=== PATIENT | female | born 1970 | race Caucasian/White ===

== ENCOUNTER 2022-06-04 20:58 | Emergency (ER) | payer OTHER ==
[~2022-06-04] VITALS: Ht 152.4 cm; Wt 68.0 kg
[2022-06-04 21:42] VITALS: BP 143/80
[2022-06-05] MEDS ORDERED: BENZ200C52 MT (01:03)
== END 2022-06-05 01:00 | disposition home or self-care (01) ==
LOC: ER 20:58
DX: R05.9 Cough, unspecified (principal); Z90.710 Acquired absence of both cervix and uterus
CPT/HCPCS: 71045; 99283